=== PATIENT | female | born 1950 | race Caucasian/White ===

== ENCOUNTER 2017-10-10 05:25 | Inpatient (IN) ==
[2017-10-10] MEDS ORDERED: Sodium Chlor 0.9% Inj 500 ML IV.SIG SCH (06:00)
[2017-10-10] MEDS ORDERED: Metoprolol Tartrate 25 MG Tablet PO SCH (06:00)
[2017-10-10] MEDS ORDERED: Chlorhexidine Gluconate 2% 1 Pack (2 Cloths) TOPICAL SCH (06:00)
[2017-10-10] MEDS ORDERED: Chlorhexidine 4% Topical 120 APPLIC/120 ML Bottle TOPICAL SCH (06:15)
[2017-10-10] MEDS ORDERED: fentaNYL Citrate Inj 100 MCG/2 ML Ampul ONE ×3 (06:20→06:34)
[2017-10-10] MEDS ORDERED: Famotidine PF Inj 20 MG/2 ML Vial ONE (06:20)
[2017-10-10] MEDS ORDERED: Dexmedetomidine Inj 200 MCG/2 ML Vial ONE (06:20)
[2017-10-10] MEDS ORDERED: Propofol Inj 500 MG/50 ML Vial ONE (06:22)
[2017-10-10] MEDS ORDERED: Sodium Chlor 0.9% Inj 0 ML ONE (06:23)
[2017-10-10] MEDS ORDERED: Bupivacaine Liposomal PF 1.3% Inj 20 ML Vial ONE (06:33)
[2017-10-10] MEDS ORDERED: Ketamine Inj 50 MG/5 ML Syringe IV.PUSH ONE (06:34)
[2017-10-10] MEDS ORDERED: Sodium Chlor 0.9% Inj 80 ML, Bupivacaine Liposo PF 1.3% Inj 20 ML P-ARTICULR SCH ×2 (07:00)
[2017-10-10] MEDS ORDERED: TRANEXAMIC ACID IV.SIG SCH ×5 (07:00→10:00)
[2017-10-10] MEDS ORDERED: SODIUM CHLOR 0.9% IV.SIG SCH ×5 (07:00→10:00)
[2017-10-10] MEDS ORDERED: ceFAZolin 2 GM Premix Inj 2 GM/50 ML PIGGYBACK IV.SIG SCH (07:00)
[2017-10-10] MEDS ORDERED: Aluminum/Magnesium/Simethacone Susp 30 ML UDC PO PRN (09:08)
[2017-10-10] MEDS ORDERED: Acetaminophen 325 MG Tablet PO PRN (09:08)
[2017-10-10] MEDS ORDERED: Post-op Orders (for Pharmacy) OTHER STA (09:08)
[2017-10-10] MEDS ORDERED: Bisacodyl 10 MG Supp RECTAL PRN (09:08)
--- NOTE | 2017-10-10 09:18 | P.OP ---
- Preoperative Diagnosis (1) Primary osteoarthritis of right knee - Postoperative Diagnosis (1) Primary osteoarthritis of right knee Date of procedure: 10/10/17 Procedure: Right total knee arthroplasty using Olive Triathlon prosthesis (uncemented). Anesthesia: GETA, regional (Adductor canal block), local (Exparel) Surgeon: Kvng Mcmullen MD Auto Radio Mechanic: SAIRA Beyer Estimated blood loss (mL): 150 Pathology: none sent Operation and Findings: Indications and Findings: This 67-year-old woman has had long-standing right knee pain dating back at least 15 months ago. She did not improve after surgery in [place]. Her ambulation tolerance is 15 minutes. She has difficulty with stairs and standing from a seated position. He has pain that will awaken her at night. Treatment has included scopic surgery, exercise, activity modification, intra-articular corticosteroids, physical therapy and ambulatory aids. Because of a nephrectomy because she cannot take anti- inflammatory agents at this time. Physical findings showed genuine varum with tenderness medial compartment, crepitation and laxity. X-rays showed loss of articular cartilage to [id number] with eburnation and osteophytes. Operative findings: There is severe osteoarthritis in the right knee with loss of articular cartilage to [id number] in the medial compartment with eburnation and osteophytes. The patellofemoral joint had less degenerative change. There is also degenerative change in the lateral compartment. The prosthesis used was a Olive Triathlon prosthesis. The femur was a size 4, cruciate retaining, uncemented. The tibial baseplate was a size 5 Tritanium with a 13 mm X3 polyethylene cruciate retaining spacer. The patella was a size 32 mm asymmetric Tritanium backed. The patient was brought to the clean-air operating suite. A spinal anesthetic was administered as well as a regional anesthetic by adductor canal block. The position was supine with a small bolster under the hip on the operative side. A pneumatic tourniquet was applied to the upper thigh. The lower extremity was prepped with alcohol, Hibiclens and ChloraPrep and draped in the usual manner with the knee draped free. An appropriate timeout procedure was carried out. An incision was made from about 3 fingerbreadths above the superior medial pole of patella down the tibial tubercle on the medial side. The incision was deepened through the subcutaneous tissue to the retinacular structures which were exposed medially and laterally. A medial retinacular incision was made from the superior middle pole of patella down the tibial tubercle and up into the quadriceps tendon splitting it longitudinally and the medial one third. The patella was reflected. The infrapatellar fat pad was debulked. The anterior cruciate ligament was excised. Medial and lateral meniscectomies were initiated. Fenestrations were made in the distal femur and proximal tibia for intramedullary referencing guides. The distal femoral cutting guide and jig were assembled for a 5, 8 mm cut. When this was fit into position,the cutting block was stabilized with pins. The jig was removed. The distal femoral cut was then completed with the oscillating saw. The sizing guide was positioned in place along Whitesides line and the epicondylar axis and stabilized with pins. The femoral size was determined as noted above. The 4-in-1 cutting block was positioned in place. Anterior and posterior cuts were made followed by posterior and anterior chamfer cuts taking care to prevent injury to ligamentous structures. Osteophytes were trimmed from the distal femur. A bone plug was placed into the fenestration of the distal femur. The proximal tibia was exposed. The medial and lateral meniscectomies were completed. The proximal tibial cutting guide was positioned in place and stabilized with a pin for rotation. The depth of cut was verified with a stylus off the high side. The cutting block was stabilized with pins. The jig was removed. The depth of cut was verified and adjusted appropriately with the use of the spacer block. The proximal tibial cut was made with the oscillating saw taking care to prevent injury to neurovascular and ligamentous structures. Proximal tibial bone was removed. Local anesthetic was administered with Exparel in the posterior capsule. The tibial baseplate trial was positioned in place. After verifying the appropriate size, the base plate trial was positioned in place along with its spacer. The femoral component was impacted into place. The alignment was checked. The tibial baseplate was pinned in place on the tibia. Attention was directed to the patella. The patella drill guide was positioned in place for the appropriate sized patella. Patellar drilling was then carried out. The trial patella was positioned in place. The knee was taken through a range of motion which was easily 0 extension to 135. The patella trial was removed. The femoral drill holes were made. The femoral trials were removed. The tibial spacer was removed. A bone plug was placed into the proximal tibia. The tibial punch was impacted through the proximal tibial punch guide. This was all removed followed by placement of the tibial drill guide. The tibial drill holes were made. The guide was removed. The cut ends of bone were cleaned with pulse lavage. The tibial baseplate was impacted into place and seated appropriately. The spacer was inserted. The the femoral component was impacted into place and seated appropriately. The patella component was seated with the patellar vice and tightened appropriately. The knee was taken through a range of motion which was comparable to the previous range of motion with excellent stability in flexion and extension and appropriate patellofemoral tracking. The remainder of the Exparel was injected throughout the knee as a local anesthetic. Drains were brought out the superior lateral aspect of the suprapatellar pouch. Wound closure commenced using 0 Vicryl interrupted [id number] sutures for the capsular and fascial structures, 2-0 Vicryl interrupted simple sutures with buried knots for the subcutaneous tissues and 4-0 Monocryl, continuous subcuticular closure for the skin. The wound was dressed with Dermabond Prineo followed by a dry sterile dressing. Sterile soft roll with a cooling pad and Dawson bandage from the base of the toes to mid thigh were applied. Patient was transferred from the operating room to the recovery room in satisfactory condition having tolerated procedure well. Counts were correct. Specimens: None. Estimated blood loss: 150 mL
[2017-10-10] MEDS ORDERED: *morphine SULFATE 4 MG/ML PERIprocedure ONLY ONE (09:45)
[2017-10-10] MEDS ORDERED: *morphine SULFATE 10 MG/ML PERIprocedure ONLY ONE (09:55)
--- NOTE | 2017-10-10 09:56 | P.DCO ---
- Physical Therapy Physical Therapy: Gait training Knee: Total knee, Protocol: Right, Gait training, Full weight bearing Right Lower Extremity Weight Bearing: Weight bearing as tolerated Right Lower Extremity Range of Motion: Active ROM (Active, active assisted and passive range of motion. Range of motion goal is 0 extension to 135 of flexion which is what was achieved in the operating room.) - Nursing Nursing: Dressing changes Dressing changes: Daily dressing change, Coverderm/Primapore Additional instructions: Do not remove Dermabond Prineo. - Certification Need for Home Health services: I have seen patient Fay Hernadez on 10/10/17. My clinical findings support the need for the requested home health care services because: Need for Home Health Services: Limited ability to care for self, High risk of falls Homebound Certification: I certify that my clinical findings support that this patient is homebound because: Homebound Certification: Post-op weakness, Unsteady gait/balance, Unsafe to leave home unassisted
--- NOTE | 2017-10-10 10:06 | XR ---
EXAM DATE: 10/10/2017 10:04 AM EDT AGE/SEX: 67 years / Female INDICATIONS: Post op right total knee replacement. CLINICAL DATA: This is the patient's initial encounter. Patient reports that signs and symptoms have been present for 1 day and indicates a pain score of 9/10. MEDICAL/SURGICAL HISTORY: None. None. COMPARISON: No prior exams available for comparison. FINDINGS: 2 views of the right knee demonstrates postsurgical changes following joint replacement. Patellar, fe moral and tibial components are well seated and in satisfactory alignment. Surgical drain is identifi ed. CONCLUSION: Satisfactory postoperative appearance of the right knee following joint replacement. Electronically signed by: Harry Sage MD 10/10/2017 10:05 AM EDT
[2017-10-10] MEDS: Ketorolac Inj 30 MG/ML (IVP) Vial IV.PUSH SCH ×3 (10:27→20:42)
[2017-10-10] MEDS ORDERED: *Meperidine Inj 25 MG/ML Vial PERIprocedural Use ONLY ONE (10:32)
[2017-10-10] MEDS: Morphine Inj 4 MG/ML Vial IV.PUSH PRN ×3 (12:19→20:43)
--- NOTE | 2017-10-10 14:37 | P.CON ---
History of Present Illness Primary Care Provider: No Primary Care Physician Chief Complaint: Right knee pain History of Present Illness: This is a 67-year-old female with a history of right knee pain affecting her activities of daily living. It is worse with ambulation. She has osteoarthritis and underwent arthroplasty by Dr. Mcmullen who requested consultation to evaluate and manage multiple medical conditions. Anesthesia records reviewed she was hemodynamically stable received 1600 mL crystalloid and EBL 150 mL. Patient has history of coronary artery disease status post CABG. Negative stress test 18 months ago denies chest pain and shortness of breath she is on isosorbide. She also has hypertension controlled on Norvasc and lisinopril. Review of preop labs showed hemoglobin 13 platelet count 213 INR 1.1 and creatinine 1.14. Patient not aware of kidney disease but she has right nephrostomy from renal cancer. Urinalysis unremarkable. EKG tracing interpreted by me with sinus rhythm with poor R-wave progression and low voltage no previous EKG for comparison. At this time, she is doing well complains of mild right knee pain. She received nerve block. Review of Systems All other systems reviewed negative except as stated in HPI PMFSH - History History Provided By: Patient (She has) - Medical History Medical History: Medical History (Last Reviewed 10/10/17 @ 06:35 by Lucinda Pike) HX: breast cancer History of chemotherapy History of gallbladder disease Hx of radiation therapy Hypertension Pain in right hip Pain in right knee - Surgical History Surgical History: Surgical History (Last Reviewed 10/10/17 @ 06:35 by Lucinda Pike) Hx of arthroscopy of right knee Hx of cholecystectomy Hx of coronary artery bypass surgery Hx of kidney removal Hx of laparoscopic adjustable gastric banding - Family History Family History: Family History (Last Updated 10/10/17 @ 14:42 by John Glynn MD) Other Family history of acute myocardial infarction - Tobacco History Second Hand Smoke Exposure: No Smoking Status: Never smoker - Alcohol History How Often Do You Have a Drink Containing Alcohol: 2 to 4 times a month - Substance Use History Substance History: No History of Abuse - Travel History Recent Travel in the [place] Within the Last 8 Weeks: No Recent Travel Out of the Country Within the Last 8 Weeks: Yes - Immunization History Tetanus Immunization: <5 Years Hx Influenza Vaccine This Season: Yes Medications and Allergies Active Medications: Active Medications Acetaminophen (Tylenol) 650 mg PO Q6H PRN PRN Reason: Pain Less Than 3 On Scale Hydrocodone Bitart/Acetaminophen ([place] 7.5/325) 1 tab PO Q4H PRN PRN Reason: PAIN SCALE 4 TO 6 MODERATE Hydrocodone Bitart/Acetaminophen ([place] 7.5/325) 2 tab PO Q6H PRN PRN Reason: PAIN SCALE 7 TO 10 SEVERE Last Admin: 10/10/17 10:18 Dose: 2 tab Al Hydrox/Mg Hydrox/Simethicone (Mag-Al Plus Susp Liq) 30 ml PO Q6H PRN PRN Reason: INDIGESTION Al Hydroxide/Mg Hydroxide (Milk Of Magnesia Liq) 30 ml PO BID PRN PRN Reason: Mild Constipation Amlodipine Besylate (Norvasc) 5 mg PO DAILY [facility] Aspirin (Aspirin Chew) 81 mg PO BID [facility] Bisacodyl (Dulcolax Supp) 10 mg RECTAL DAILY PRN PRN Reason: SEVERE CONSITIPATION Chlorhexidine Gluconate (Chlorhexidine 2% Cloth) 3 pack TOPICAL SERVICE AIDE [facility] Stop: 10/13/17 05:58 Chlorhexidine Gluconate (Hibiclens 4% Topical) 1 applicatio TOPICAL ONCE [facility] Stop: 10/14/17 06:14 Diphenhydramine HCl (Benadryl) 25 mg PO Q6H PRN PRN Reason: ITCHING Lactated Ringer's (Lr 1000 Ml Inj) 1,000 mls @ 30 mls/hr IV.SIG .Q24H [facility] Stop: 10/13/17 05:58 Sodium Chloride (Ns Inj) 500 mls @ 30 mls/hr IV.SIG .Q10H [facility] Stop: 10/13/17 05:58 Cefazolin Sodium/Dextrose (Ancef 2 Gm Premix Inj) 2 gm in 50 mls @ 100 mls/hr IV.SIG SERVICE AIDE [facility] Stop: 10/14/17 06:59 Last Infusion: 10/10/17 07:33 Dose: Infused Cefazolin Sodium 2,000 mg/ (Sodium Chloride) 100 mls @ 200 mls/hr IV.SIG Q6H [facility] Stop: 10/11/17 01:29 Last Admin: 10/10/17 12:19 Dose: 200 mls/hr Lactated Ringer's (Lr 1000 Ml Inj) 1,000 mls @ 80 mls/hr IV.CONT .[id number] [facility] Last Admin: 10/10/17 09:49 Dose: 80 mls/hr Tranexamic Acid 987 mg/ Sodium (Chloride) 109.87 mls @ 200 mls/hr IV.SIG UNSCH X1 [facility] Stop: 10/10/17 16:00 Last Infusion: 10/10/17 10:30 Dose: 200 mls/hr Isosorbide Mononitrate (Imdur) 30 mg PO DAILY [facility] Ketorolac Tromethamine (Toradol Inj) 15 mg IV.PUSH Q6H [facility] Stop: 10/12/17 03:16 Last Admin: 10/10/17 14:23 Dose: 15 mg Lactulose (Lactulose Liq) 30 ml PO DAILY PRN PRN Reason: SEVERE CONSITIPATION Lisinopril (Prinivil) 10 mg PO DAILY [facility] Metoprolol Tartrate (Lopressor) 25 mg PO SERVICE AIDE [facility] Stop: 10/13/17 05:58 Miscellaneous Information ([facility] Nursing Information) 1 each OTHER UNSCH PRN PRN Reason: SEE LABEL COMMENTS Stop: 10/11/17 09:28 Morphine Sulfate (Morphine Inj) 2 mg IV.PUSH Q3H PRN PRN Reason: BREAKTHROUGH PAIN Last Admin: 10/10/17 12:19 Dose: 2 mg Ondansetron HCl (Zofran Odt) 4 mg PO Q6H PRN PRN Reason: NAUSEA OR VOMITING Povidone Iodine (Betadine 5% Antisepsis Kit) 1 applicatio EACH NARE SERVICE AIDE [facility] Stop: 10/13/17 05:58 Senna/Docusate Sodium (Cierra-Colace) 1 tab PO BID [facility] Sennosides (Senokot) 17.2 mg PO BID PRN PRN Reason: Moderate Constipation Sodium Chloride (Ns Flush) 2 ml IV.FLUSH BID [facility] Sodium Chloride (Ns Flush) 2 ml IV.FLUSH PRN PRN PRN Reason: FLUSH AFTER USING IV ACCESS Vitamin D (Vitamin D3) 1,000 unit PO DAILY [facility] Allergies Allergy/AdvReac Type Severity Reaction Status Date / Time No Known Allergies Allergy Unverified 09/29/17 08:36 Home Medications Medication Instructions Recorded Confirmed Type amlodipine 5 mg PO DAILY 09/29/17 10/10/17 History cholecalciferol (vitamin D3) 1,000 unit PO DAILY 09/29/17 10/10/17 History [Vitamin D3] isosorbide mononitrate 30 mg PO QAM 09/29/17 10/10/17 History lisinopril 10 mg PO DAILY 09/29/17 10/10/17 History zolpidem 10 mg PO HS 09/29/17 10/10/17 History Physical Exam Vital signs: Vital Signs 10/10/17 06:23 10/10/17 09:30 10/10/17 09:45 Temperature 98.5 F 97.5 F L Pulse Rate 62 97 H 65 Respiratory Rate 20 13 10 L Blood Pressure 143/65 H 120/56 L 144/68 H Pulse Oximetry 99 100 100 10/10/17 10:00 10/10/17 10:15 10/10/17 10:27 Temperature Pulse Rate 60 62 Respiratory Rate 18 19 Blood Pressure 123/60 107/53 L Pulse Oximetry 100 96 100 10/10/17 10:30 10/10/17 10:43 10/10/17 10:45 Temperature Pulse Rate 65 66 Respiratory Rate 20 16 Blood Pressure 123/58 L 123/58 L Pulse Oximetry 98 90 L 100 10/10/17 11:00 10/10/17 11:15 10/10/17 11:30 Temperature Pulse Rate 57 L 60 65 Respiratory Rate 18 19 19 Blood Pressure 121/58 L 121/58 L 108/53 L Pulse Oximetry 100 99 100 10/10/17 12:00 Temperature 97.4 F L Pulse Rate 65 Respiratory Rate 16 Blood Pressure 115/58 L Pulse Oximetry 96 Intake & Output 10/09/17 10/10/17 10/10/17 18:59 06:59 18:59 Intake Total 1868.87 / 1868.87 Output Total 150 / 150 Balance 1718.87 / 1718.87 Weight 98.7 kg Intake: IV 268.87 / 268.87 Cyklokapron Inj 987 MG In NS 218.87 / 218.87 Inj 100 ML @ 200 mls/hr IV.SIG UNSCH X1 [facility] Rx#:[id number] Ancef 2 GM Premix Inj 2 gm In 50 / 50 50 ml @ 100 mls/hr IV.SIG SERVICE AIDE [facility] Rx#:[id number] Anesthesia Amount 1600 / 1600 Output: Estimated Blood Loss 150 / 150 Other: Weight On Admission 98.7 kg Narrative: GENERAL: WD WN in [place] SKIN: Warm and dry. HEAD: Atraumatic. Normocephalic. EYES: Pupils equal and round. No scleral icterus. No injection or drainage. ENT: No nasal bleeding or discharge. Mucous membranes pink and moist. NECK: Trachea midline. No JVD. CARDIOVASCULAR: Regular rate and rhythm. RESPIRATORY: No accessory muscle use. Clear to auscultation. Breath sounds equal bilaterally. GASTROINTESTINAL: Abdomen soft, non-tender, nondistended. . MUSCULOSKELETAL: Extremities without clubbing, cyanosis, or edema. RLE in a CKS NEUROLOGICAL: Awake and alert. No obvious cranial nerve deficits. Motor grossly within normal limits. Assessment and Plan - Plan This is a 67-year-old female with a history of right knee osteoarthritis s/p arthroplasty by Dr. Mcmullen who requested consultation to evaluate and manage multiple medical conditions. She is stable continue postoperative care with physical therapy, wound care, incentive spirometry, bowel regimen, DVT prophylaxis with aspirin and SCD pain management with Lortab and morphine. Coronary artery disease status post CABG. Negative stress test 18 months ago denies chest pain and shortness of breath she is on isosorbide. Hypertension controlled on Norvasc and lisinopril. Creatinine 1.14. Patient not aware of kidney disease but she has right nephrostomy from renal cancer. Urinalysis unremarkable. Repeat BMP in the morning Discharge Planning: C vs rehab
[2017-10-10] MEDS ORDERED: Lidocaine PF 1% Inj 5 ML Syringe INFILTRATN ONE (18:06)
[2017-10-10] MEDS ORDERED: Neostigmine Inj 5 MG/5 ML Syringe IV.PUSH ONE (18:06)
[2017-10-10] MEDS ORDERED: Glycopyrrolate Inj 1 MG/5 ML Syringe IV.PUSH ONE (18:06)
[2017-10-10] MEDS: Senna/Docusate Sodium 8.6/50 MG Tablet PO SCH (20:41)
[2017-10-11] MEDS: Morphine Inj 4 MG/ML Vial IV.PUSH PRN ×2 (02:41→07:45)
[2017-10-11] MEDS: Ketorolac Inj 30 MG/ML (IVP) Vial IV.PUSH SCH ×3 (02:41→15:27)
--- NOTE | 2017-10-11 07:23 | P.PNOP ---
Subjective Interval history: Postoperative day #1: The patient is doing well. She has minimal complaints related to the knee at this time. Has been up walking. PT notes show that she walked 15 feet and 25 feet. Her range of motion was 0 extension to 70 of flexion. Physical Exam Vital signs: Vital Signs 10/10/17 09:30 10/10/17 09:45 10/10/17 10:00 Temperature 97.5 F L Pulse Rate 97 H 65 60 Respiratory Rate 13 10 L 18 Blood Pressure 120/56 L 144/68 H 123/60 Pulse Oximetry 100 100 100 10/10/17 10:15 10/10/17 10:27 10/10/17 10:30 Temperature Pulse Rate 62 65 Respiratory Rate 19 20 Blood Pressure 107/53 L 123/58 L Pulse Oximetry 96 100 98 10/10/17 10:43 10/10/17 10:45 10/10/17 11:00 Temperature Pulse Rate 66 57 L Respiratory Rate 16 18 Blood Pressure 123/58 L 121/58 L Pulse Oximetry 90 L 100 100 10/10/17 11:15 10/10/17 11:30 10/10/17 12:00 Temperature 97.4 F L Pulse Rate 60 65 65 Respiratory Rate 19 19 16 Blood Pressure 121/58 L 108/53 L 115/58 L Pulse Oximetry 99 100 96 10/10/17 16:00 10/10/17 20:00 10/11/17 00:40 Temperature 97.3 F L 98.0 F 98.1 F Pulse Rate 57 L 76 61 Respiratory Rate 18 16 16 Blood Pressure 130/63 148/67 H 121/58 L Pulse Oximetry 97 97 95 Intake & Output 10/10/17 10/11/17 10/11/17 18:59 06:59 18:59 Intake Total 2368.87 / 2368.87 1100 / 1100 Output Total 300 / 300 265 / 265 Balance 2068.87 / 2068.87 835 / 835 Intake: IV 368.87 / 368.87 1100 / 1100 LR 1000 mL Inj 1,000 ML @ 80 1000 / 1000 mls/hr IV.CONT .[id number] [facility] Rx# :[id number] Cyklokapron Inj 987 MG In NS 218.87 / 218.87 Inj 100 ML @ 200 mls/hr IV.SIG UNSCH X1 [facility] Rx#:[id number] Ancef 2 GM Premix Inj 2 gm In 50 / 50 50 ml @ 100 mls/hr IV.SIG SCOURER [facility] Rx#:[id number] Ancef Inj 2,000 MG In NS Inj 100 / 100 100 / 100 100 ML @ 200 mls/hr IV.SIG Q6H [facility] Rx#:[id number] Oral 400 / 400 Anesthesia Amount 1600 / 1600 Output: Estimated Blood Loss 150 / 150 Wound Drainage 150 / 150 265 / 265 # 2 Right Knee Hemovac 150 / 150 265 / 265 Other: Date of Last Bowel Movement 10/09/17 10/09/17 Narrative: She is resting comfortably, supine in bed, in the CPM. The dressing is dry and intact. The neurovascular status is intact. Results - Labs Laboratory Results - last 24 hr 10/10/17 06:17 Blood Type A Positive Blood Type Recheck Required Antibody Screen Negative - Imaging Impressions Knee X-Ray 10/10/17 09:04 CONCLUSION: Satisfactory postoperative appearance of the right knee following joint replacement. Assessment and Plan - Ortho Post Op Day # 1 - Problem List (1) Status post total right knee replacement not using cement Code(s): Z96.651 - Presence of right artificial knee joint Status: Acute Plan: Continue postop care and PT. - Assessment and Plan Condition: Good. Orthopedically stable. DVT prophylaxis: TEDs, aspirin, sequentials. Discharge plans: Home with home health care. An appointment was scheduled through the office. Prescriptions: Slemp 7.5/325; Patient is having significant pain caused by her recent surgery which will last more than 3 days. Trial of Tylenol has not helped. I believe that it is medically necessary to treat patients pain because it is affecting patients ability to participate in postoperative rehabilitation and perform activities of daily living in a comfortable and efficient manner.
--- NOTE | 2017-10-11 07:31 | P.DS ---
Date of admission: 10/10/17 05:25 Primary care physician: No Primary Care Physician Attending physician on discharge: Kvng Mcmullen Anticipated date of discharge: 10/11/17 Brief History from admission: This 67-year-old woman has had long-standing pain in her right knee nonresponsive to conservative measures as detailed in history and physical examination. She had limited ambulation tolerance with interference with activities of daily living. She did not respond to conservative, nonoperative care as well as an arthroscopic procedure carried out [place]. She is unable to take anti-inflammatory agents because of a single kidney. Physical findings showed genuine varum with tenderness in the medial compartment, crepitation on range of motion and palpable osteophytes. She had an antalgic gait. X-rays showed severe osteoarthritis particularly in the medial compartment with osteophytes, eburnation and loss of articular cartilage to [id number]. DS: Diagnosis - Discharge Diagnosis (1) Status post total right knee replacement not using cement Status: Acute (2) Primary osteoarthritis of right knee Status: Resolved DS: Medications - Discharge Medications Prescriptions: hydrocodone-acetaminophen 1 tab PO Q4H PRN 7 Days #42 tab PRN Reason: Pain, Severe DS: Summary Hospital Course: The patient was admitted as noted above. The above noted operative procedure was carried out that day. Preoperatively prophylactic antibiotics were administered Ancef according to protocol. These were continued postoperatively. The patient also received tranexamic acid to help with hemostasis according to protocol. In the postanesthesia care unit a continuous passive motion device was initiated. Also initiated were mechanical methods of DVT prophylaxis in the form of [place] stockings and sequentials. Physical therapy was initiated on the day of surgery. On postoperative day #1 physical therapy continued. The use of the continuous passive motion device continued. DVT prophylaxis with aspirin was initiated at this time. The patient continued physical therapy throughout the hospitalization. The distance walked and range of motion improved throughout the hospitalization. The patient was discharged on postoperative day 1 with the disposition being to home with home health care. An appointment for follow-up was made prior to admission. - Time Spent with Patient Total time spent providing and/or coordinating discharge services: - Quality: VTE Deep Vein Thrombosis/Pulmonary Embolism Present on Admission: No Exam Vital signs: Vital Signs 10/10/17 09:30 10/10/17 09:45 10/10/17 10:00 Temperature 97.5 F L Pulse Rate 97 H 65 60 Respiratory Rate 13 10 L 18 Blood Pressure 120/56 L 144/68 H 123/60 Pulse Oximetry 100 100 100 10/10/17 10:15 10/10/17 10:27 10/10/17 10:30 Temperature Pulse Rate 62 65 Respiratory Rate 19 20 Blood Pressure 107/53 L 123/58 L Pulse Oximetry 96 100 98 10/10/17 10:43 10/10/17 10:45 10/10/17 11:00 Temperature Pulse Rate 66 57 L Respiratory Rate 16 18 Blood Pressure 123/58 L 121/58 L Pulse Oximetry 90 L 100 100 10/10/17 11:15 10/10/17 11:30 10/10/17 12:00 Temperature 97.4 F L Pulse Rate 60 65 65 Respiratory Rate 19 19 16 Blood Pressure 121/58 L 108/53 L 115/58 L Pulse Oximetry 99 100 96 10/10/17 16:00 10/10/17 20:00 10/11/17 00:40 Temperature 97.3 F L 98.0 F 98.1 F Pulse Rate 57 L 76 61 Respiratory Rate 18 16 16 Blood Pressure 130/63 148/67 H 121/58 L Pulse Oximetry 97 97 95 Intake & Output 10/10/17 10/11/17 10/11/17 18:59 06:59 18:59 Intake Total 2368.87 / 2368.87 1100 / 1100 Output Total 300 / 300 265 / 265 Balance 2068.87 / 2068.87 835 / 835 Intake: IV 368.87 / 368.87 1100 / 1100 LR 1000 mL Inj 1,000 ML @ 80 1000 / 1000 mls/hr IV.CONT .[id number] ADONIS Rx# :[id number] Cyklokapron Inj 987 MG In NS 218.87 / 218.87 Inj 100 ML @ 200 mls/hr IV.SIG UNSCH X1 ADONIS Rx#:[id number] Ancef 2 GM Premix Inj 2 gm In 50 / 50 50 ml @ 100 mls/hr IV.SIG W[employer] SU[employer] SPECIALIST ADONIS Rx#:[id number] Ancef Inj 2,000 MG In NS Inj 100 / 100 100 / 100 100 ML @ 200 mls/hr IV.SIG Q6H ADONIS Rx#:[id number] Oral 400 / 400 Anesthesia Amount 1600 / 1600 Output: Estimated Blood Loss 150 / 150 Wound Drainage 150 / 150 265 / 265 # 2 Right Knee Hemovac 150 / 150 265 / 265 Other: Date of Last Bowel Movement 10/09/17 10/09/17 Narrative: She was resting comfortably, supine in bed, in the [facility]. The neurovascular status is intact. Dressing is dry and intact. Results Procedures completed during hospitalization: Right total knee arthroplasty using [place] Triathlon prosthesis (uncemented) on 10/10/2017 Labs on day of discharge: Labs from last 24 hours 10/10/17 06:17 Blood Type A Positive Blood Type Recheck Required Antibody Screen Negative - Impressions ITS Impression Knee X-Ray 10/10/17 09:04 CONCLUSION: Satisfactory postoperative appearance of the right knee following joint replacement. Discharge Plan - Discharge Disposition Patient Disposition: /Home Health Service - Discharge Condition Condition: Stable - Discharge Order Discharge Orders: Discharge Order (Routine); Ordered 10/11/17 Ordered By: Kvng Mcmullen - Discharge Details Anticipated Discharge Date: 10/11/17 - Physicians Team Primary Care Provider: Primary Care Nayeli Jiang Attending Provider: Kvng Mcmullen Other Providers: John Glynn MD - Rxs /Orders / Referrals /Forms Prescriptions: New aspirin 81 mg Tablet,Chewable 81 mg PO BID RF: 0 hydrocodone-acetaminophen 7.5-325 mg Tablet 1 tab PO Q4H PRN (Reason: Pain, Severe) 7 Days Qty: 42 RF: 0 Continue amlodipine 5 mg Tablet 5 mg PO DAILY cholecalciferol (vitamin D3) [Vitamin D3] 1,000 unit Tablet 1,000 unit PO DAILY isosorbide mononitrate 30 mg Tablet Extended Release 24 Hr 30 mg PO QAM lisinopril 10 mg Tablet 10 mg PO DAILY zolpidem 10 mg Tablet 10 mg PO HS Referrals: Primary Care Nayeli Jiang [Primary Care Provider] - See Instructions - Discharge Instructions Additional Instructions: PRESCRIPTIONS GIVEN AT TIME OF DISCHARGE TAKE MEDICATIONS PRESCRIBED FOLLOW UP WITH MD INSTRUCTED FULL WEIGHT BEARING TOLERATED AVOID: LIFTING/BENDING, STRENUOUS ACTIVITY, BATHING, AND DRIVING SHOWER ONLY! KEEP DRESSING DRY, CLEAN, AND INTACT DAILY, CLEAN DRESSING CHANGE
[2017-10-11 08:24] LABS: Hematocrit 30.9 % (35.0-46.0); Hemoglobin 10.2 gm/dL (11.6-15.3)
[2017-10-11 08:55] LABS: Calcium 8.4 mg/dL (8.5-10.1); Carbon Dioxide 24.9 meq/L (21.0-32.0); Magnesium 1.9 mg/dL (1.5-2.5); Potassium 4.7 meq/L (3.5-5.1)
[2017-10-11] MEDS ORDERED: Isosorbide Mononitrate 30 MG ER 24HR Tablet (Imdur) PO SCH (09:00)
[2017-10-11] MEDS ORDERED: Lisinopril 10 MG Tablet PO SCH (09:00)
[2017-10-11] MEDS ORDERED: amLODIPine 5 MG Tablet PO SCH (09:00)
[2017-10-11] MEDS: Senna/Docusate Sodium 8.6/50 MG Tablet PO SCH (09:58)
--- NOTE | 2017-10-11 12:59 | P.PN ---
Subjective Interval history: Follow-up orthopedic surgery. She is doing okay. No voiding issues. Physical Exam Vital signs: Vital Signs 10/10/17 16:00 10/10/17 20:00 10/11/17 00:40 Temperature 97.3 F L 98.0 F 98.1 F Pulse Rate 57 L 76 61 Respiratory Rate 18 16 16 Blood Pressure 130/63 148/67 H 121/58 L Pulse Oximetry 97 97 95 10/11/17 04:40 10/11/17 08:00 10/11/17 12:00 Temperature 97.7 F 97.7 F 97.8 F Pulse Rate 65 45 L 49 L Respiratory Rate 16 16 16 Blood Pressure 108/51 L 94/50 L 105/53 L Pulse Oximetry 96 92 L 94 L Intake & Output 10/10/17 10/11/17 10/11/17 18:59 06:59 18:59 Intake Total 2368.87 / 2368.87 1580 / 1580 Output Total 300 / 300 265 / 265 Balance 2068.87 / 2068.87 1315 / 1315 Intake: IV 368.87 / 368.87 1100 / 1100 LR 1000 mL Inj 1,000 ML @ 80 1000 / 1000 mls/hr IV.CONT .[id number] ADONIS Rx# :[id number] Cyklokapron Inj 987 MG In NS 218.87 / 218.87 Inj 100 ML @ 200 mls/hr IV.SIG UNSCH X1 ADONIS Rx#:[id number] Ancef 2 GM Premix Inj 2 gm In 50 / 50 50 ml @ 100 mls/hr IV.SIG TEST FIXTURE DESIGNER ADONIS Rx#:[id number] Ancef Inj 2,000 MG In NS Inj 100 / 100 100 / 100 100 ML @ 200 mls/hr IV.SIG Q6H ADONIS Rx#:[id number] Oral 400 / 400 480 / 480 Anesthesia Amount 1600 / 1600 Output: Estimated Blood Loss 150 / 150 Wound Drainage 150 / 150 265 / 265 # 2 Right Knee Hemovac 150 / 150 265 / 265 Other: # Voids 1 Date of Last Bowel Movement 10/09/17 10/09/17 # Bowel Movements 0 Narrative: GENERAL: WD WN in [place] SKIN: Warm and dry. CARDIOVASCULAR: Regular rate and rhythm. RESPIRATORY: No accessory muscle use. Clear to auscultation. Breath sounds equal bilaterally. GASTROINTESTINAL: Abdomen soft, non-tender, nondistended. . MUSCULOSKELETAL: Extremities without clubbing, cyanosis, or edema. Dressing on her right knee NEUROLOGICAL: Awake and alert. No obvious cranial nerve deficits. Motor grossly within normal limits. Results - Labs CBC & Chem 7: 10/11/17 06:38 10/11/17 06:38 Laboratory Results - last 24 hr 10/11/17 10/11/17 06:38 06:38 Hgb 10.2 L Hct 30.9 L Sodium 139 Potassium 4.7 Chloride 104 Carbon Dioxide 24.9 Anion Gap 10 BUN 18 Creatinine 1.40 H Estimated GFR 38 L Random Glucose 119 H Calcium 8.4 L Magnesium 1.9 - Procedures Right total knee arthroplasty using [place] Triathlon prosthesis (uncemented) on 10/10/2017 Assessment and Plan - Plan This is a 67-year-old female with a history of right knee osteoarthritis s/p arthroplasty by Dr. Mcmullen who requested consultation to evaluate and manage multiple medical conditions. She is stable continue postoperative care with physical therapy, wound care, incentive spirometry, bowel regimen, DVT prophylaxis with aspirin and SCD pain management with Lortab and morphine. Coronary artery disease status post CABG. Negative stress test 18 months ago denies chest pain and shortness of breath she is on isosorbide. Hypertension controlled on Norvasc and lisinopril. Creatinine 1.14. Slightly worse today 1.4. Patient not aware of kidney disease but she has right nephrostomy from renal cancer. Urinalysis unremarkable. Nonoliguric. Repeat BMP in 2 days. Avoid nephrotoxins Anemia secondary to acute blood loss but hemodynamically stable Mild hyperglycemia. Outpatient fasting glucose. Discharge Planning: per ortho
== END 2017-10-11 18:07 | disposition home health service (06) ==
LOC: HSDI 05:25 → N06 11:52
PROVIDERS: ADMIT Orthopaedic Surgery; ATTEND Orthopaedic Surgery